=== PATIENT | female | born 1965 | race Caucasian/White ===

== ENCOUNTER 2019-01-22 07:58 | Emergency (ER) | payer OTHER ==
[~2019-01-22] VITALS: Ht 170.2 cm; Wt 81.8 kg
[~2019-01-22 07:58] MED LIST: BENTYL OR; BISAC5TA PO; COLA50CA3 PO; IBUP600T26 PO; MESA400C PO; PRED1TAB32 PO
[2019-01-22] MEDS ORDERED: MORPHINE 10 MG/ML 1ML VIAL (J2270) IM ONE (08:45)
[2019-01-22 10:33] LABS: BASO % 0.4 % (0.0-1.0); EOS # 0.1 10^3/uL (0.0-0.50); EOS % 0.8 % (0.0-3.0); LYMPH # 2.5 10^3/uL (1.5-4.5); LYMPH % 23.7 % (24.0-44.0); MEAN CORPUSCULAR HEMOGLOBIN 31.4 pg (27.0-33.0); MEAN CORPUSCULAR HGB CONC 32.6 g/dl (32.0-36.5); MEAN CORPUSCULAR VOLUME 96.4 fl (80.0-96.0); MONO # 0.9 10^3/uL (0.0-0.8); MONO % 8.2 % (0.0-5.0); NEUTROPHILS # 7.1 10^3/uL (1.8-7.7); NEUTROPHILS % 66.5 % (36.0-66.0); PLATELET COUNT, AUTOMATED 332 10^3/uL (150-450); RED BLOOD COUNT 4.77 10^6/uL (4.00-5.40); WHITE BLOOD COUNT 10.7 10^3/uL (4.0-10.0)
[2019-01-22 10:44] LABS: INR 0.9; PROTHROMBIN TIME 12.2 SECONDS (12.1-14.4)
[2019-01-22 10:45] LABS: PARTIAL THROMBOPLASTIN TIME 24.4 SECONDS (25.4-37.6)
--- NOTE | 2019-01-22 10:51 | REP ---
RIGHT ELBOW SERIES: Four views of the right elbow are performed. There is no acute fracture or dislocation. There are erosive changes of the radial head. There appear to be ligamentous and/or tendinous calcifications along the humeral epicondyles. I suspect that posterior joint body laterally about 1.2 cm in maximum diameter. IMPRESSION: No evidence of acute fracture or dislocation. Erosive changes radial head with ligamentous and tendinous calcifications and probable posterolateral joint body. Electronically Signed by Domingo Orr MD 01/22/2019 04:27 P
[2019-01-22 11:10] LABS: ALBUMIN 3.7 GM/DL (3.2-5.2); ALT/SGPT 41 U/L (12-78); BILIRUBIN,DIRECT < 0.1 MG/DL (0.0-0.2); BILIRUBIN,TOTAL 0.2 MG/DL (0.2-1.0); BLOOD UREA NITROGEN 7 MG/DL (7-18); CALCIUM LEVEL 8.5 MG/DL (8.5-10.1); CARBON DIOXIDE LEVEL 24 MEQ/L (21-32); CHLORIDE LEVEL 105 MEQ/L (98-107); CPK CREATINE PHOSPHOKINASE 52 U/L (26-192); CREATININE FOR GFR 0.72 MG/DL (0.55-1.30); GLOMERULAR FILTRATION RATE > 60.0 (>51); GLUCOSE, FASTING 267 MG/DL (70-100); LIPASE 51 U/L (73-393); MB/CK RELATIVE INDEX 2.12 (< OR =4); POTASSIUM SERUM 4.1 MEQ/L (3.5-5.1); SODIUM LEVEL 137 MEQ/L (136-145); TOTAL PROTEIN 7.2 GM/DL (6.4-8.2); TROPONIN I < 0.02 NG/ML (< 0.10)
[2019-01-22] MEDS ORDERED: PERCOCET 5MG/325MG TAB PO ONE ×2 (12:15→16:30)
--- NOTE | 2019-01-22 14:29 | REP ---
CHEST, TWO VIEWS: COMPARISON: 10/11/2013. There is no evidence of acute infiltrate. No pleural effusion is seen. The heart is normal in size. The mediastinal silhouette is unremarkable. The visualized osseous structures are intact. There is an old fracture of the distal left clavicle. There are mild degenerative changes of the spine. IMPRESSION: No acute pulmonary disease. Electronically Signed by Domingo Orr MD 01/22/2019 04:27 P
[2019-01-22] MEDS ORDERED: ONDANSETRON 4MG/2ML VIAL (J2405) IV ONE (14:45)
--- NOTE | 2019-01-22 14:59 | ECGEPIP ---
Stationary ECG Study [facility] - ED Test Date: 2019-01-22 Pat Name: JULIANNE HUTCHINSON Department: Room: - Gender: F Protection Manager: pmo : 1965 Requested By: SYED Greer Order Number: [id number] Reading MD: Luciano Harmon Measurements Intervals [place] Rate: 92 P: 33 HI: 141 QRS: -27 QRSD: 101 T: 40 QT: 380 QTc: 470 Interpretive Statements SINUS RHYTHM WITH SINUS ARRHYTHMIA INFERIOR MYOCARDIAL INFARCTION, PROBABLY OLD Borderline QTc interval Electronically Signed On 01-22-2019 14:59:04 EDT by Luciano Harmon
[2019-01-22 17:05] LABS: CPK CREATINE PHOSPHOKINASE 36 U/L (26-192); MB/CK RELATIVE INDEX 3.06 (< OR =4); TROPONIN I < 0.02 NG/ML (< 0.10)
[2019-01-22 17:15] VITALS: BP 119/70
--- NOTE | 2019-01-22 21:58 | ECGEPIP ---
Stationary ECG Study [facility] - ED Test Date: 2019-01-22 Pat Name: JULIANNE HUTCHINSON Department: Room: - Gender: F [employer] Operator: ISAIAH : 1965 Requested By: SYED Greer Order Number: [id number] Reading MD: Luciano Harmon Measurements Intervals [place] Rate: 58 P: 38 NH: 140 QRS: 12 QRSD: 101 T: 28 QT: 420 QTc: 414 Interpretive Statements SINUS BRADYCARDIA Evolving septal/anterior st-t wave changes when compared to tracing done 1013 on the same day Baseline artifact Electronically Signed On 01-22-2019 21:58:41 EDT by Luciano Harmon
== END 2019-01-22 17:42 | disposition home or self-care (01) ==
LOC: M ED 07:58
DX: S50.01XA Contusion of right elbow, initial encounter (principal); W18.30XA Fall on same level, unspecified, initial encounter; Y92.009 Unspecified place in unspecified non-institutional (private) residence as the place of occurrence of the external cause; Y93.9 Activity, unspecified; Y99.9 Unspecified external cause status; R00.1 Bradycardia, unspecified; R10.13 Epigastric pain; M54.9 Dorsalgia, unspecified; E11.9 Type 2 diabetes mellitus without complications; Z87.19 Personal history of other diseases of the digestive system; Z90.49 Acquired absence of other specified parts of digestive tract; Z79.52 Long term (current) use of systemic steroids; Z79.899 Other long term (current) drug therapy
CPT/HCPCS: 71046; 73080; 80048; 80076; 82550; 82553; 83690; 85025; 85610; 85730; 93005; 93041; 94760; 96372; 96374; 99285; J2270; J2405